=== PATIENT | male | born 1980 | race Caucasian/White ===

== ENCOUNTER 2016-10-24 10:12 | Inpatient (IN) | payer MEDICAID ==
[~2016-10-24] VITALS: Ht 172.7 cm; Wt 78.7 kg
--- NOTE | 2016-10-24 10:26 | NUR ---
MSE COMPLETED BY DR GRIGGS.
--- NOTE | 2016-10-24 10:34 | NUR ---
X-RAY AT BEDSIDE.
--- NOTE | 2016-10-24 10:58 | NUR ---
REPORT GIVEN TO JACQUELINE HENDRICKS RN TO ASSUME CARE OF PT.
--- NOTE | 2016-10-24 11:22 | NUR ---
MEDICATED ORDERED. PLEASE SEE EMR.
[2016-10-24 11:34] LABS: PLATELET COUNT 239 x10^3mcL (130-400); RED CELL DISTRIBUTION WIDTH 12.5 % (11.5-14.5)
[2016-10-24 11:44] LABS: CARBON DIOXIDE 29.6 mmol/L (21-32); CHLORIDE SERUM 99 mmol/L (98-107); GFR1 > 60 mL/min; GLUCOSE SERUM 99 mg/dL (74-106); POTASSIUM SERUM 4.5 mmol/L (3.5-5.1); SODIUM SERUM 135 mmol/L (136-145)
--- NOTE | 2016-10-24 12:30 | NUR ---
PT SITTING ON COMFORT IN POSITION OF COMFORT. RESPS E/U. NO S/S OF DISTRESS NOTED. CALL LIGHT W/IN REACH. WILL CONTINUE TO MONITOR.
[2016-10-24 12:38] LABS: ATYPICAL LYMPH 2 %; BAND NEUTROPHIL 5 % (0-10); MONOCYTE 7 % (0-7)
[2016-10-24 12:39] LABS: SEGMENTED NEUTROPHILS 77 % (37-75); rbc morphology (normal/abnorm) NORMAL (NORMAL)
[2016-10-24 12:40] LABS: PLATELET MORPHOLOGY PLATELETS NORMAL
--- NOTE | 2016-10-24 13:34 | NUR ---
REPORT GIVEN TO SHALINI RIVERA FOR CONTINUATION OF CARE PRIMARY RN.
--- NOTE | 2016-10-24 13:45 | NUR ---
RECEIVED PT FROM ED VIA [facility]ER[facility], CAME IN DUE TO RIGHT HAND SWELLING AND PAIN. AAOX4. DENIES HEADACHE/DIZZINESS. NO SOB NOTED. DENIES CHEST PAIN/PRESSURE. DENIES ABDOMINAL DISCOMFORT. W/ RIGHT HAND SWELLING AND REDNESS. NO DECREASED SENSATION NOTED. W/ RIGHT HAND 4TH DIGIT REDNESS AND SCANT PURULENT DRAINAGE, WOUND IS COVERED WITH 2X2 GAUZE, KERLIX DRESSING AND SECURED W/ TAPE. STATED THAT HE HAS 9/10 RIGHT HAND PAIN. IV ON THE LAC, GAUGE 20 IS PATENT AND INTACT. SIDE RAILS UPX2. CALL LIGHT ON REACH. PRIMARY NURSE CRISTIANO AT BEDSIDE FOR CONTINUITY OF CARE
[2016-10-24 14:02] VITALS: BP 133/83
[2016-10-24 14:07] VITALS: Ht 172.7 cm; Wt 78.7 kg
[2016-10-24 15:08] LABS: T3 TOTAL 1.18 ng/mL
[2016-10-24 15:21] LABS: FREE T4 1.14 ng/dL (0.76-1.46); FREE THYROXINE INDEX 2.9 ug/dL (1.4-4.5); T4(THYROXINE) 8.3 ug/dL (4.7-13.3)
[2016-10-24 15:24] LABS: BILIRUBIN DIRECT 0.2 mg/dL (0.0-0.2); BILIRUBIN TOTAL 0.7 mg/dL (0.20-1.00); MAGNESIUM 2.3 mg/dL (1.8-2.4); PHOSPHOROUS 3.4 mg/dL (2.5-4.9); TOTAL PROTEIN, SERUM 7.6 g/dL (6.4-8.2)
[2016-10-24 15:43] LABS: CHOLESTEROL/HDL RATIO 2.7
--- NOTE | 2016-10-24 16:57 | NUR ---
AT 1350 - RECEIVED PATIENT FROM ER NURSE. SETTLED IN ROOM, ORIENTED TO SURROUNDINGS. PATIENT IS AWAKE, ALERT AND ORIENTED X 4. C/O PAIN 8/10 IN R HAND. NOTED SWELLING AND REDDNESS OF R HAND. WRAPPED IN DRY BANDAGE. AT 1358 - MEDICATED WITH IV MORPHINE PER EMAR. IV INFUSION OF NS COMMENCED AT 120ML/HR. R ARM ELEVATED ON 2 PILLOWS. AT 1530 - PLACED ON CARDIAC MONITORING, TELE # [phone]. AT 1600 - RESTING QUIETLY. PAIN UNDER CONTROL AT THIS TIME.
[2016-10-24 17:15] VITALS: BP 132/67
--- NOTE | 2016-10-24 17:24 | NUR ---
WOUND CULTURE SWAB TAKEN FROM R HAND AND TAKEN FROM LAB. ULTRASOUND AT BEDSIDE FOR U/S OF R HAND AND ARM.
--- NOTE | 2016-10-24 18:39 | NUR ---
MEDICATED WITH TYLANOL PER EMAR FOR TEMP OF 100.4 . R HAND REDRESSED WITH NON-ADHESIVE DRESSING AND GAUZE BANDAGE, FOLLOWING COMPLETION OF ULTRASOUND. PATIENT HAS EATEN DINNER. COMMENCED ON IV LEVAQUIN. FIRST DOSE IN PROGRESS. WILL ENDORSE CARE TO NIGHT NURSE.
--- NOTE | 2016-10-24 19:45 | NUR ---
PT. AWAKE, ALERT, ORIENTED X4. DENIES HEADACHE OR DIZZINESS. BREATH SOUNDS CLEAR THROUGHOUT LUNG BRUNO, RESP. EVEN, UNLABORED. NO SOB NOTED. NSR ON MONITOR, NO ECTOPIES NOTED. BLE PEDAL PULSES STRONG. RT. HAND EEMA, +1, SLIGHTLY RED. DRSG CDI. RT. HAND ELEVATED. DENIES ANY PAIN AT THIS TIME. IVF NS AT 120CC/HR. CALL LIGHT WITHIN REACH.
[2016-10-24 21:27] VITALS: BP 106/83
--- NOTE | 2016-10-24 22:30 | NUR ---
PT. AWAKE, APPEARS UNCOMFORTABLE. PT. DENIED NEED FOR PAIN MEDICATION INTIALLY BUT WAS ENOCURAGED TO GET BOND MED. HE KEPT SAYING THAT PAIN WASN'T THAT BAD BUT DENIED NEED AT FIRST. PRN MORPHINE WAS OFFERED. MORPHINE GIVEN ORDERED. WILL MONITOR.
[2016-10-25 05:26] VITALS: BP 111/72
[2016-10-25 07:19] LABS: BASOPHIL % 0.2 % (0-2); PLATELET COUNT 210 x10^3mcL (130-400); RED CELL DISTRIBUTION WIDTH 12.5 % (11.5-14.5)
--- NOTE | 2016-10-25 07:26 | NUR ---
AT 0710 - RECEIVED PATIENT FROM NIGHT NURSE. PATIENT AWAKE, ALERT AND ORIENTED. MONITOR SHOWING SINUS RHYTHM; RATE 51. IV INFUSING NS AT 120ML/HR. DRESSING TO R HAND IS DRY AND INTACT. ENCOURAGED TO KEEP R ARM ELEVATED ON PILLOWS.
[2016-10-25 08:04] LABS: CALCIUM 8.9 mg/dL (8.5-10.1); CARBON DIOXIDE 28.2 mmol/L (21-32); CHLORIDE SERUM 100 mmol/L (98-107); CREATININE SERUM 0.9 mg/dL (0.7-1.3); GFR1 > 60 mL/min; GLUCOSE SERUM 92 mg/dL (74-106); POTASSIUM SERUM 4.1 mmol/L (3.5-5.1); SODIUM SERUM 136 mmol/L (136-145)
[2016-10-25 08:05] LABS: ALBUMIN 3.3 g/dL (3.4-5.0)
--- NOTE | 2016-10-25 09:24 | NUR ---
AT 0810 - MEDICATED WITH MORPHINE PER EMAR FOR PAIN IN R HAND 02/04. AT 0820 - SEEN BY DR DELONG DURING MORNING ROUNDS. MEDICAL TEAM DOCTORS, JOCELINE QUIJANO AND MYSELF PRIMARY NURSE ALSO PRESENT. DR DELONG SPOKE WITH PATIENT USING [employer]. EXPLAINED TO PATIENT DX AND PLAN OF TREATMENT. ALSO PLAN FOR ORTHO CONSULT WITH DR SHERWOOD. PATIENT VERBALIZED UNDERSTANDING. PATIENT AWARE OF NEED FOR URINE SPECIMEN.
[2016-10-25 09:37] VITALS: BP 127/87
[2016-10-25 09:42] VITALS: BP 127/87; BP 141/100
--- NOTE | 2016-10-25 10:43 | NUR ---
URINE COLLECTED AND TAKEN TO LAB FOR UA, UDS AND URC.
[2016-10-25 13:02] VITALS: BP 129/90
--- NOTE | 2016-10-25 14:27 | NUR ---
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 CHARGE NURSE NOTIFIED DR HOYOS. AT 1125 - PATIENT PLACED ON CONTACT ISOLATION. AT 1255 - MEDICATED WITH MOTRIN FOR R HAND PAIN. PATIENT ENCOURAGED TO MAINTAIN R HAND ELEVATION. AT 1410 - REPORTS GOOD RELIEF OF PAIN WITH MOTRIN. FAMILY VISITING. FAMILY EDUCATED ON CONTACT ISOLATION PRECAUTIONS.
[2016-10-25 15:03] LABS: microscopic required? NO
[2016-10-25 16:04] LABS: urine erythrocyte NEGATIVE (NEGATIVE)
[2016-10-25 16:28] LABS: AMPHETAMINE QUAL UR NONE DETECTED (NEG <=1000)
[2016-10-25 17:33] VITALS: BP 114/81
--- NOTE | 2016-10-25 19:35 | NUR ---
AT 1600 - DRESSING TO R HAND CHANGED. NOTED THAT R 4TH FINGER APPEARS WHITE/MACERATED WITH PUS DRAINAGE. PHOT DOCUMENTED. CALLED DR HOYOS WHO CAME AND SAW THE WOUND. CLEANSED WITH NS, COVERED WITH TELFA NON- ADHERANT DRESSING, FLUFF GAUZE AND GAUZE WRAP. ELEVATED ON PILLOWS. AT 1910 - PATIENT HAS BEEN HAVING GOOD PAIN CONTROL WITH MOTRIN. REMAINS AFEBRILE. VSS. IV INFUSING NS AT 120ML/HR. EATING WELL. CARE OF PATIENT ENDORSED TO NIGHT NURSE.
--- NOTE | 2016-10-25 19:35 | NUR ---
PT. AWAKE, ALERT, ORIENTED X4, DENIES HEADACHE OR DIZZINESS. BREATH SOUNDS CLEAR THROUGHOUT LUNG BRUNO, RESP. EVEN, UNLABORED. NO SOB NOTED. DENIES CHESTPAIN. NO EDEMA TO BLE. PEDAL PULSES STRONG [place]. RT. HAND W/ GAUZE DRSG CDI. +1 EDEMA NOTED. PT. ABLE TO MOVE FINGER AND OPEN AND CLOSE HAND. IVF NS AT 120CC/HR, SITE INTACT. CALL LIGHT WITHIN REACH. PT. DENIES ANY PAIN OR DISCOMFORT.
[2016-10-25 22:01] VITALS: BP 113/71
[2016-10-26 05:16] VITALS: BP 131/79
[2016-10-26 06:51] LABS: BASOPHIL % 0.4 % (0-2); PLATELET COUNT 214 x10^3mcL (130-400); RED CELL DISTRIBUTION WIDTH 12.5 % (11.5-14.5)
[2016-10-26 06:59] LABS: CARBON DIOXIDE 26.6 mmol/L (21-32); CHLORIDE SERUM 102 mmol/L (98-107); CREATININE SERUM 0.8 mg/dL (0.7-1.3); GFR1 > 60 mL/min; GLUCOSE SERUM 105 mg/dL (74-106); POTASSIUM SERUM 4.2 mmol/L (3.5-5.1); SODIUM SERUM 137 mmol/L (136-145)
[2016-10-26 07:13] LABS: ALBUMIN 3.1 g/dL (3.4-5.0)
[2016-10-26 09:26] VITALS: BP 128/81
[2016-10-26 12:37] VITALS: BP 137/95
--- NOTE | 2016-10-26 15:30 | NUR ---
DR SHERWOOD CAME AND SAW PT,CHECKED AND ASSES PT'S RIGHT HAND WOUND AND DRESSING CHANGED.DENIES PAIN.
[2016-10-26 16:25] VITALS: BP 131/96
--- NOTE | 2016-10-26 20:01 | NUR ---
PT RESTING IN BED. RR EVEN AND UNLABORED. NO ACUTE DISTRESS NOTED. MED SURG PT. DENIES CP/PRESSURE. PULSES GOOD, TRACE EDEMA ON R. HAND. LUNG SOUNDS CLEAR, ON RA. DENIES SOB/ DIFFICULTY BREATHING. BOWEL SOUNDS ACTIVE. AMBULATORY WITHOUT ASSISTANCE. NON ADHESIVE DRESSING ON R. HAND, CDI. IV IN LAC, INTACT AND PATENT. BED IN LOWEST POSITION. CALL LIGHT WITHIN REACH. WILL CONTINUE TO MONITOR.
[2016-10-26 21:55] VITALS: BP 125/81
--- NOTE | 2016-10-27 03:23 | NUR ---
PT RESTING IN BED. RR EVEN AND UNLABORED. NO ACUTE DISTRESS NOTED. R. EXTREMITY ELEVATED. CALL LIGHT WITHIN REACH. BED IN LOWEST POSITION. WILL CONTINUE TO MONITOR.
[2016-10-27 06:44] VITALS: BP 119/89
[2016-10-27 07:21] LABS: CALCIUM 9.2 mg/dL (8.5-10.1); CARBON DIOXIDE 27.3 mmol/L (21-32); CHLORIDE SERUM 103 mmol/L (98-107); CREATININE SERUM 0.9 mg/dL (0.7-1.3); GFR1 > 60 mL/min; GLUCOSE SERUM 91 mg/dL (74-106); POTASSIUM SERUM 4.2 mmol/L (3.5-5.1); SODIUM SERUM 141 mmol/L (136-145)
[2016-10-27 07:29] LABS: BASOPHIL % 0.8 % (0-2); PLATELET COUNT 252 x10^3mcL (130-400); RED CELL DISTRIBUTION WIDTH 12.5 % (11.5-14.5)
[2016-10-27 08:00] VITALS: BP 129/92
[2016-10-27 09:43] VITALS: BP 136/85
--- NOTE | 2016-10-27 10:34 | NUR ---
WOUND CARE AND DRESSING CHANGE RENDERED BY WOUND CARE NURSE. PT DENIES PAIN AT THIS TIME.
[2016-10-27] MEDS ORDERED: SIMVASTATIN10 M1 PO (10:37)
[2016-10-27] MEDS ORDERED: LEVOFLOXACIN500 M1 PO (10:38)
[2016-10-27] MEDS ORDERED: LAC PO (10:39)
[2016-10-27] MEDS ORDERED: KEN025C TOP (10:49)
[2016-10-27 11:21] VITALS: BP 136/85
--- NOTE | 2016-10-27 12:00 | NUR ---
PT'S CONDITION STABLE,DENIES PAIN TO HIS RIGHT AFFECTED HAND,DRESSING CLEAN AND INTACT. VITALS' NORMAL,DC INSTRUCTIONS RENDERED INCLUDING TO FOLLOW UP W/ PCP ON 10/29/16,POP ALVAREZ'D,PRESCRIPTION NOTE ENDORSED. WHEELED DOWN.
--- NOTE | 2016-10-27 13:07 | NUR ---
WOUND CARE NOTES: SEEN PATIENT TODAY RE: RIGHT 4TH DIGIT SWELLING. SKIN ASSESSMENT DONE ON THIS 36 Y./O MALE PATIENT FROM HOME TO [facility], WITH INITIAL DIAGNOSIS OF RIGHT HAND SWELLING. NO PETRTINENT MEDICAL HISTORY CLAIMED. ALL ABOVE INFORMATION WAS OBTAINED FROM THE ADMISSION H&P. LABS ARE WBC 6.1, H/H 15.6/47, GLUCOSE 91, ALBUMIN 3.1 AND PT/INR 10.2/1.0. CURRENT MEDS INCLUDE IBUPROFEN, CLINDAMYCIN, LEVOFLOXACIN AND MORPHINE. PATIENT IS AWAKE, ALERT, ORIENTED TO PERSON, PLACE, DATE AND TIME. ABLE TO FOLLOW SIMPLE COMMAND. SKIN WARM TO TOUCH WNL, TOENAILS WNL, NO EDEMA, WITH HAIR GROWTH AND +3BILATERAL PEDAL PULSES. URINE AND BOWEL CONTINENT, ABLE TO AMBULATE TO THE RESTROOM CLAIMED. INITIAL PLAN OF CARE AND PRESSURE PREVENTIVE MEASURES DISCUSSED, ABLE TO VERBALIZE UNDERSTANDING. INTEGUMENTARY: RIGHT 4TH FINGER - CELLULITIS - 100% PALE RED. PW RED AND WARM TO TOUCH RECOMMENDATIONS: -CLEANSE RIGHT 4TH FINGER WITH NS AND GAUZE, PAT DRY, APPLY TRIPLE ANTIBIOTIC, COVER WITH GAUZE AND WRAP WITH ANA Q DAY AND PRN WITH SOILING/DISPLACEMENT -ENCOURAGE PATIENT TO TURN AND REPOSITION SELF Q2H -ASSESS AND MONITOR SKIN CONDITION DURING POSITION CHANGE, PLEASE PAY PARTICULAR ATTENTION TO SACRALCOCCYX, ELBOWS AND HEELS -OFFLOAD BILATERAL HEELS BY PLACING PILLOWS UNDER CALVES AT ALL TIMES, UNLESS OTHERWISE CONTRAINDICATED -KEEP SKIN CLEAN AND DRY AT ALL TIMES. RECOMMENDATIONS DISCUSSED WITH PRIMARY RN AND RESIDENT PHYSICIAN, DR. VEGAS NO FOLLOW UP NEEDED AT THIS TIME. PLEASE CONTACT [facility] FOR ANY CONCERNS, QUESTIONS AND CHANGES IN SKIN CONDITION.
== END 2016-10-27 12:04 | disposition home or self-care (01) | DRG 383 ==
LOC: ED 10:12 → MU 12:53 → DU 12:53 → MU 13:45 → DU 15:33 → MU 10-25 09:48
PROVIDERS: Emergency Medicine; Family Medicine; ADMIT Family Medicine
DX: L03.011 Cellulitis of right finger (principal); E44.0 Moderate protein-calorie malnutrition; E87.1 Hypo-osmolality and hyponatremia; I10 Essential (primary) hypertension; E78.5 Hyperlipidemia, unspecified; Z68.26 Body mass index [BMI] 26.0-26.9, adult
CPT/HCPCS: 80307; 83880; 84439; 90715; J0295; J1956; J2270; J3490; J7030; Q0092